=== PATIENT | female | born 1995 | race African-American/Black ===

== ENCOUNTER 2019-05-24 18:24 | Emergency (ER) | payer OTHER, SELFPAY ==
[2019-05-24 18:50] VITALS: BP 133/74; PULSE 75; RESP 16; TEMP 37.6; O2SAT 100
--- NOTE | 2019-05-24 19:30 | ED.GENADULT ---
HPI - General Adult General Chief complaint: Back Pain/Injury Stated complaint: Lower Back Pain Time Seen by Provider: 05/24/19 19:31 Source: patient and RN notes reviewed Mode of arrival: ambulatory Limitations: no limitations History of Present Illness HPI narrative: 23-year-old female presents with complaints of chronic intermittent RT lower back pain that exacerbated over the last 3-4 days. Ibuprofen (last 4 PM today) and IcyHot without relief. Denies new injuries or falls. Denies radiating pain, numbness, or tingling. Denies fever or chills. No upper or lower extremity pain or weakness. Exacerbating factors consist of prolong standing, laying down, and bending over. Denies nausea, vomiting, or abdominal pain. Denies problems with urinating or having a bowel movement, LBM this a.m. per patient and normal. No flank pain or hematuria or dysuria. Julia denies being , LMP 05/10/19-05/15/19. Some parts of this dictation were generated by voice recognition software and may contain typographical and/or grammatical inaccuracies. Related Data Allergies Allergy/AdvReac Type Severity Reaction Status Date / Time No Known Allergies Allergy Unverified 08/02/17 13:05 Review of Systems Review of Systems: Narrative: CONSTITUTIONAL: Denies fever, chills, sweats. EYES: Denies visual changes, redness, discharge. ENT: Denies rhinorrhea, congestion, sore throat, otalgia. CARDIOVASCULAR: Denies chest pain, palpitations, edema. RESPIRATORY: Denies dyspnea, wheezing, cough. GASTROINTESTINAL: Denies abdominal pain, nausea, vomiting, diarrhea. GENITOURINARY: Denies dysuria, hematuria, abnormal discharge. SKIN: Denies rash or itching. MUSCULOSKELETAL: Complains of RT lower back pain. Denies joint pain or myalgia. NEUROLOGIC: Denies numbness or focal weakness. PSYCHIATRIC: Denies anxiety or depression. All systems reviewed & are unremarkable except as noted in HPI and below. [facility] Past Medical History Medical History (Updated 05/25/19 @ 00:00 by Background Daemon) No significant past medical history Surgical History Surgical History (Updated 05/24/19 @ 19:40 by JANET Munoz) No significant past surgical history Family History Family History (Updated 05/24/19 @ 19:40 by JANET Munoz) Other No significant family history Social History Social History (Updated 05/24/19 @ 19:41 by JANET Munoz) Smoking status: Never smoker Second hand tobacco smoke exposure: No Alcohol intake: current Alcohol use details: Occasionally Substance use: never Living arrangements: with family Occupation/Education: occupation Gender identity (if verbalized by the patient): Female Comments At time of signature, agree with nurse past medical, surgical, social, and family history. There is no relevant family history pertinent to the presenting complaint. Exam Narrative: Exam Narrative: GENERAL: This is a well-nourished, well-developed patient, in no apparent distress. Talks in full sentences without deficits and ambulates with steady gait without dyspnea. HEAD: normocephalic, atraumatic. EYES: PERRL. Sclera clear/white. Vision is grossly intact. NECK: Neck supple, non-tender without lymphadenopathy, masses or thyromegaly. CARDIOVASCULAR: Regular rate and rhythm without murmurs, gallops, or rubs. RESPIRATORY: Clear to auscultation. Breath sounds equal bilaterally. No wheezes, rales, or rhonchi. GASTROINTESTINAL: Abdomen soft, non-tender, nondistended. Bowel sounds are active. No hepato-splenomegaly, or palpable masses. No guarding. SKIN: warm, intact with no suspicious lesions or rash, good texture and turgor. NEURO: awake, alert, and oriented to person, place and time. There were no obvious focal neurologic abnormalities. EXTREMITIES: No clubbing, cyanosis, or edema. No joint tenderness, effusion, or edema noted. No calf tenderness. Negative Homans sign bilaterally. BACK: Moderate te
== END 2019-05-24 19:53 | disposition home or self-care (01) ==
PROVIDERS: Emergency Provider Nurse Practitioner Family; PCP Internal Medicine
DX: M54.5 Low back pain (principal)
CPT/HCPCS: 99213; G0463

== ENCOUNTER 2019-06-02 17:30 | Emergency (ER) | payer OTHER, SELFPAY ==
--- NOTE | 2019-06-02 17:41 | PC.NURSE ---
immediately after registration stated needed to use br. given spec. container.
--- NOTE | 2019-06-02 18:05 | ED.FEMALEGU ---
HPI - Female Genitourinary General Chief complaint: Urogenital-Female Stated complaint: Abdominal pain Time Seen by Provider: 06/02/19 18:01 Source: patient and RN notes reviewed Mode of arrival: ambulatory Limitations: no limitations History of Present Illness HPI Narrative: Patient presents today complaining of dysuria, suprapubic pain, urinary frequency since 1530 this afternoon. Denies fever, back pain, hematuria. No recent antibiotic use. She has tried no interventions for symptoms prior to arrival. MD elicited complaint: UTI Related Data Allergies Allergy/AdvReac Type Severity Reaction Status Date / Time No Known Allergies Allergy Unverified 08/02/17 13:05 Review of Systems Review of Systems: Narrative: CONSTITUTIONAL: Denies body aches, fever, chills, or sweats. EYES: Denies visual changes, redness, or discharge. ENT: Denies rhinorrhea, congestion, sore throat, or otalgia. CARDIOVASCULAR: Denies chest pain, palpitations, or edema. RESPIRATORY: Denies cough or dyspnea. GASTROINTESTINAL: Denies abdominal pain, nausea, vomiting, or diarrhea. GENITOURINARY: Denies hematuria.+ Dysuria, frequency, suprapubic pain SKIN: Denies rash, itching, or wounds. MUSCULOSKELETAL: Denies back pain, joint pain, or myalgia. NEUROLOGIC: Denies headache, numbness, tingling, or weakness. PSYCH: Denies depression or anxiety. [facility] Past Medical History Medical History (Updated 06/02/19 @ 18:09 by Carmella Eller, [employer], ) No significant past medical history Surgical History Surgical History (Updated 05/24/19 @ 19:40 by JANET Munoz) No significant past surgical history Family History Family History (Updated 05/24/19 @ 19:40 by JANET Munoz) Other No significant family history Social History Social History (Updated 05/24/19 @ 19:41 by JANET Munoz) Smoking status: Never smoker Second hand tobacco smoke exposure: No Alcohol intake: current Substance use: never Gender identity (if verbalized by the patient): Female Comments At time of signature, I have reviewed and agree with nursing past medical, surgical, social and family history unless otherwise noted. Please see nursing chart for further information. There is no relevant family history pertinent to the presenting complaint Exam Narrative: Exam Narrative: GENERAL: Well-appearing, well-nourished, and in no acute distress. HEAD: Normocephalic, atraumatic. EYES: EOMI. No redness or drainage. Conjunctivae normal. ENT: Mucous membranes pink and moist. NECK: Normal AROM. CHEST: No respiratory distress. Clear to auscultation. HEART: Regular rate and rhythm. No murmur appreciated. Normal peripheral pulses. ABDOMEN: Soft, nondistended, normal active bowel sounds.+ Suprapubic tenderness.-CVAT MUSCULOSKELETAL: No bony tenderness. EXTREMITIES: Normal range of motion. No edema. SKIN: Warm, dry, no rash. NEURO: No focal deficits. Alert and oriented x3. Gait steady. PSYCH: Normal affect. No signs of depression or anxiety. Course Vital Signs Vital signs: Vital Signs Temperature 98.3 F 06/02/19 18:08 Pulse Rate 88 06/02/19 18:08 Respiratory Rate 16 06/02/19 18:08 Blood Pressure 135/84 06/02/19 18:08 Pulse Oximetry 100 06/02/19 18:08 Temperature 98.3 F 06/02/19 18:08 Pulse Rate 88 06/02/19 18:08 Respiratory Rate 16 06/02/19 18:08 Blood Pressure 135/84 06/02/19 18:08 Pulse Oximetry 100 06/02/19 18:08 Reviewed. Pt has been instructed to follow up with her PCP regarding her elevated blood pressure today. MDM - Female Genitourinary Differential Diagnosis Differential diagnosis: Likely urinary tract infection and cystitis Lab Data Attestation: I reviewed the patient's lab results. Labs: Urine Glucose Negative Reference Range: Negative Urine Bilirubin Negative Reference Range: Negative Urine Ketone Negative Re
[2019-06-02 18:08] VITALS: BP 135/84; PULSE 88; RESP 16; TEMP 36.8; O2SAT 100
== END 2019-06-02 18:13 | disposition home or self-care (01) ==
PROVIDERS: Emergency Provider Nurse Practitioner; PCP Internal Medicine
DX: N30.01 Acute cystitis with hematuria (principal)
CPT/HCPCS: 81003; 87077; 87086; 87088; 87186; 99213; G0463

== ENCOUNTER 2019-06-03 11:46 | Emergency (ER) | payer OTHER, SELFPAY ==
[2019-06-03 11:53] VITALS: BP 129/59; PULSE 99; RESP 16; TEMP 37.7; O2SAT 100
--- NOTE | 2019-06-03 12:45 | ED.URI ---
HPI - URI/Sore Throat General Chief Complaint: Upper Respiratory Infection Stated Complaint: Sore Throat Time Seen by Provider: 06/03/19 12:45 Source: patient Mode of arrival: ambulatory Limitations: no limitations History of Present Illness HPI Narrative: Ruddy Quijano is a 23 yo female with no PMH who came to express care again today for complaints of laryngitis and inability to swallow. Was here yesterday for UTI. States she woke up this morning with the sore throat and inability to talk, states that her sinuses feel congested Related Data Allergies Allergy/AdvReac Type Severity Reaction Status Date / Time No Known Allergies Allergy Verified 06/03/19 11:53 Review of Systems Review of Systems: Narrative: CONSTITUTIONAL: Denies fever, chills, sweats. EYES: Denies visual changes, redness, discharge. ENT: Has rhinorrhea, congestion, sore throat, no otalgia. Laryngitis CARDIOVASCULAR: Denies chest pain, palpitations, edema. RESPIRATORY: Denies dyspnea, wheezing, cough GASTROINTESTINAL: Denies abdominal pain, nausea, vomiting, diarrhea. GENITOURINARY: Denies dysuria, hematuria, abnormal discharge SKIN: Denies rash or itching. NEUROLOGIC: Denies numbness, or focal weakness. PSYCHIATRIC: Denies anxiety or depression. [facility] Past Medical History Medical History No significant past medical history Surgical History Surgical History (Updated 05/24/19 @ 19:40 by JANET Munoz) No significant past surgical history Family History Family History Other No significant family history Social History Social History Smoking status: Never smoker Second hand tobacco smoke exposure: No Alcohol intake: current Substance use: never Gender identity (if verbalized by the patient): Female Comments At time of signature, I agree with nursing past medical, surgical, social and family history. There is no relevant family history pertinent to the presenting complaint. Exam Narrative: Exam Narrative: GENERAL: This is a well-nourished, well-developed patient, in mild distress. HEAD: normocephalic, atraumatic. EYES: Sclera clear/white. Vision is grossly intact. EARS: External ears normal, auditory canals clear and without drainage, TMs normal without perforation. Hearing grossly intact. NOSE: External nose normal with nasal discharge, nares without redness, has rhinorrhea. THROAT: Mucous membranes moist, posterior pharynx erythema NECK: Neck supple, non-tender CARDIOVASCULAR: Regular rate and rhythm without murmurs, gallops, or rubs. RESPIRATORY: Clear to auscultation. Breath sounds equal bilaterally. No wheezes, rales, or rhonchi. GASTROINTESTINAL: Abdomen soft, non-tender, SKIN: warm, intact with no suspicious lesions or rash, good texture and turgor. NEURO: awake, alert, and oriented to person, place and time. There were no obvious focal neurologic abnormalities. Steady gait EXTREMITIES: Normal range of motion. No edema. BACK: Nontender without deformity or crepitance. . Course Course Emergency Course: Started on prednisone, Mucinex, benzocaine lozenges Vital Signs Vital signs: Vital Signs Temperature 99.8 F H 06/03/19 11:53 Pulse Rate 99 06/03/19 11:53 Respiratory Rate 16 06/03/19 11:53 Blood Pressure 129/59 L 06/03/19 11:53 Pulse Oximetry 100 06/03/19 11:53 Temperature 99.8 F H 06/03/19 11:53 Pulse Rate 99 06/03/19 11:53 Respiratory Rate 16 06/03/19 11:53 Blood Pressure 129/59 L 06/03/19 11:53 Pulse Oximetry 100 06/03/19 11:53 MDM - URI/Sore Throat Differential Diagnosis Differential diagnosis: Likely upper respiratory infection, viral infection and pharyngitis Lab Data Labs: Strep Screen Presumptive Negative *(Reference Range: Negative)* Discharge Plan Disch
== END 2019-06-03 13:02 | disposition home or self-care (01) ==
PROVIDERS: Emergency Provider Nurse Practitioner; PCP Internal Medicine
DX: J04.2 Acute laryngotracheitis (principal); J02.9 Acute pharyngitis, unspecified
CPT/HCPCS: 87081; 87880; 99213; G0463

== ENCOUNTER 2019-06-05 11:25 | Emergency (ER) | payer OTHER, SELFPAY ==
[2019-06-05 11:49] VITALS: BP 141/87; PULSE 100; TEMP 37.2; O2SAT 100
--- NOTE | 2019-06-05 12:59 | ED.GENADULT ---
HPI - General Adult General Chief complaint: Unspecified Stated complaint: fever/sore throat Time Seen by Provider: 06/05/19 11:53 Source: patient Mode of arrival: ambulatory Limitations: no limitations History of Present Illness HPI narrative: Patient is a 23-year-old female who presents to emergency department for evaluation of upper respiratory symptoms for the last 2 days with hoarseness congestion rhinorrhea sore throat denies vomiting diarrhea is resting comfortably in the room in no distress aware of case findings treatment plan and diagnosis agreeing to follow-up as directed or to return if symptoms worsen or concerns Related Data Allergies Allergy/AdvReac Type Severity Reaction Status Date / Time No Known Allergies Allergy Verified 06/03/19 11:53 Review of Systems Review of Systems: Narrative: CONSTITUTIONAL: Denies fever, chills, or sweats. EYES: Denies redness, or discharge. ENT: Positive for rhinorrhea congestion and sore throat RESPIRATORY: Positive for cough denies dyspnea GASTROINTESTINAL: Denies abdominal pain, nausea, vomiting, or diarrhea. GENITOURINARY: Denies dysuria or hematuria. SKIN: Denies rash or itching. MUSCULOSKELETAL: Denies back pain, joint pain, or myalgia. NEUROLOGIC: Denies headache, dizziness [facility] Past Medical History Medical History No significant past medical history Surgical History Surgical History No significant past surgical history Social History Social History Smoking status: Never smoker Second hand tobacco smoke exposure: No Alcohol intake: current Substance use: never Gender identity (if verbalized by the patient): Female Exam Narrative: Exam Narrative: GENERAL: Well-appearing, well-nourished, and in no acute distress. HEAD: Normocephalic, atraumatic. EYES: PERRLA and EOMI. ENT: Nares clear, no rhinorrhea or epistaxis. Mucous membranes moist. Oropharynx with erythema and without tonsillar hypertrophy exudate or other lesions. Bilateral TMs pearly mccormick nonbulging NECK: Supple. No adenopathy or masses. CHEST: Clear to auscultation. No respiratory distress. No wheezes rales or rhonchi HEART: Regular rate and rhythm. No murmur heard. . EXTREMITIES: Normal range of motion. No edema. SKIN: Warm, dry, no rash. NEURO: No focal deficits. Alert and oriented x3. PSYCH: Normal mood and affect. Course Course Emergency Course: Patient in the room in no distress aware of case findings treatment plan and diagnosis agreeing to follow-up as directed or to return if symptoms worsen or concerns Vital Signs Vital signs: Vital Signs Temperature 99.0 F 06/05/19 11:49 Pulse Rate 100 06/05/19 11:49 Blood Pressure 141/87 H 06/05/19 11:49 Pulse Oximetry 100 06/05/19 11:49 Temperature 99.0 F 06/05/19 11:49 Pulse Rate 100 06/05/19 11:49 Blood Pressure 141/87 H 06/05/19 11:49 Pulse Oximetry 100 06/05/19 11:49 Medical Decision Making MDM Narrative Medical decision making narrative: Negative influenza negative strep in the room afebrile nontoxic-appearing no distress felt appropriate for outpatient reevaluation agreeing to follow-up as directed provided with reasons to return Vital Signs Vital Signs: Vital Signs Temperature 99.0 F 06/05/19 11:49 Pulse Rate 100 06/05/19 11:49 Blood Pressure 141/87 H 06/05/19 11:49 Pulse Oximetry 100 06/05/19 11:49 Temperature 99.0 F 06/05/19 11:49 Pulse Rate 100 06/05/19 11:49 Blood Pressure 141/87 H 06/05/19 11:49 Pulse Oximetry 100 06/05/19 11:49 Lab Data Labs: Influenza A Screen Negative Reference Range: Negative Influenza B Screen Negative Reference Range: Negative Strep Screen Presumptive Negative *(Reference Range: Negative)* Discharg
== END 2019-06-05 13:35 | disposition home or self-care (01) ==
PROVIDERS: Emergency Provider Emergency Medicine; PCP Internal Medicine
DX: J06.9 Acute upper respiratory infection, unspecified (principal)
CPT/HCPCS: 87081; 87804; 87880; 99283

== ENCOUNTER 2019-06-10 18:20 | Emergency (ER) | payer OTHER, SELFPAY ==
[2019-06-10 18:23] VITALS: BP 145/110; PULSE 102; RESP 20; TEMP 38.2; O2SAT 100
[2019-06-10 18:29] VITALS: BP 142/78; PULSE 100; RESP 16; TEMP 38.1; O2SAT 99
--- NOTE | 2019-06-10 18:51 | ED.GENADULT ---
HPI - General Adult General Chief complaint: Unspecified Stated complaint: swollen tonsils Time Seen by Provider: 06/10/19 18:25 Source: patient Mode of arrival: ambulatory Limitations: no limitations History of Present Illness HPI narrative: Patient is a 23-year-old female who presents to emergency department for evaluation of swollen tonsils ear pain for the last 10 days patient notes aching pain worse with swallowing patient has been seen for this and has taken prescribed medications to include antibiotics with no improvement patient denies any fever chills nausea vomiting and on arrival is otherwise resting comfortably in the room in no distress Related Data Allergies Allergy/AdvReac Type Severity Reaction Status Date / Time No Known Allergies Allergy Verified 06/03/19 11:53 Review of Systems Review of Systems: All systems reviewed & are unremarkable except as noted in HPI and below PMFSH Social History Social History Smoking status: Never smoker Second hand tobacco smoke exposure: No Alcohol intake: current Substance use: never Gender identity (if verbalized by the patient): Female Exam Narrative: Exam Narrative: GENERAL: Well-appearing, well-nourished, and in no acute distress. HEAD: Normocephalic, atraumatic. EYES: PERRLA and EOMI. ENT: Nares clear, no rhinorrhea or epistaxis. Mucous membranes moist. Oropharynx without tonsillar hypertrophy exudate or other lesions. Bilateral TMs nonerythematous slightly bulging NECK: Supple. Anterior adenopathy noted CHEST: Clear to auscultation. No respiratory distress. No wheezes rales or rhonchi HEART: Regular rate and rhythm. No murmur heard. Normal peripheral pulses. EXTREMITIES: Normal range of motion. No edema. SKIN: Warm, dry, no rash. NEURO: No focal deficits. Alert and oriented x3. Cranial nerves II through XII grossly intact PSYCH: Normal mood and affect. Course Course Emergency Course: Patient in the room in no distress aware of case findings treatment plan and diagnosis provided with ENT follow-up Vital Signs Vital signs: Vital Signs Temperature 100.7 F H 06/10/19 18:23 Pulse Rate 102 H 06/10/19 18:23 Respiratory Rate 20 06/10/19 18:23 Blood Pressure 145/110 H 06/10/19 18:23 Pulse Oximetry 100 06/10/19 18:23 Temperature 100.6 F H 06/10/19 18:29 Pulse Rate 100 06/10/19 18:29 Respiratory Rate 16 06/10/19 18:29 Blood Pressure 142/78 H 06/10/19 18:29 Pulse Oximetry 99 06/10/19 18:29 Medical Decision Making MDM Narrative Medical decision making narrative: Patient in the room in no distress aware of case findings treatment plan and diagnosis agreeing to follow-up as directed or to return if symptoms worsen or concerns Vital Signs Vital Signs: Vital Signs Temperature 100.7 F H 06/10/19 18:23 Pulse Rate 102 H 06/10/19 18:23 Respiratory Rate 20 06/10/19 18:23 Blood Pressure 145/110 H 06/10/19 18:23 Pulse Oximetry 100 06/10/19 18:23 Temperature 100.6 F H 06/10/19 18:29 Pulse Rate 100 06/10/19 18:29 Respiratory Rate 16 06/10/19 18:29 Blood Pressure 142/78 H 06/10/19 18:29 Pulse Oximetry 99 06/10/19 18:29 Discharge Plan Discharge Clinical Impression: Pharyngitis Patient Disposition: Home, Self-Care Condition: Stable Instructions: Antibiotic Form, Pharyngitis (ED) Additional Instructions: Follow-up with ear nose and throat in the next 5 to 7 days. Go to ER for shortness of breath, difficulty breathing, chest pain, fever/chills, weakness, nauseau/vomitting, unable to swallow or open the mouth etc. or any other concerns. Stay well-hydrated Take any prescribed medications as directed. Follow patient education sheets If you do not have a drug allergy to tylenol or motrin and can tolerate it then take tylenol or motrin as needed for discomfort/pain. Prescriptions: New montelukast [Singulair] 10 mg tablet
[2019-06-10] MEDS: ACETAMINOPHEN 500 MG TABLET 1000 MG PO (19:10)
[2019-06-10 19:13] VITALS: BP 138/70; PULSE 98; RESP 16; TEMP 38; O2SAT 99
== END 2019-06-10 19:14 | disposition home or self-care (01) ==
PROVIDERS: Emergency Provider Emergency Medicine; PCP Internal Medicine
DX: J02.9 Acute pharyngitis, unspecified (principal)
CPT/HCPCS: 96372; 99283; A9270; J1100

== ENCOUNTER 2019-09-20 08:27 | Emergency (ER) | payer OTHER, SELFPAY ==
[2019-09-20 08:49] VITALS: BP 131/69; PULSE 79; RESP 18; TEMP 36.8; O2SAT 100
--- NOTE | 2019-09-20 09:02 | ED.ABDPAIN ---
HPI - Abdominal Pain General Chief Complaint: Abdominal Pain Stated Complaint: crapping in stomach Time Seen by Provider: 09/20/19 09:03 Source: patient and RN notes reviewed Mode of arrival: ambulatory Limitations: no limitations History of Present Illness HPI narrative: This is a 24 years old female presents to the office for an evaluation of abdominal cramping intermittently for 2 months after . Pain is getting worse for the last 1 to 2 weeks and become more constant. She reports spotting initially after ; but not currently. Rates pain 8/10. Associated with nauseous, decreased appetite, bloating/constipation feeling, and painful sex. She also reported urinary retention with vaginal discharge however she denies foul odor. She had a 1-year-old child. She had a telephone follow-up with clinic afterward however everything was fine then. She was told to follow-up with her doctor who cancel her appointment due to COVID. She did not tried anything for pain. Related Data Home Medications Medication Instructions Recorded Confirmed acetaminophen-codeine 1 tablet PO Q4H 09/20/19 09/20/19 [Tylenol-Codeine #3] acyclovir 800 mg PO DAILY 09/20/19 09/20/19 ibuprofen 600 mg PO TID 09/20/19 09/20/19 Allergies Allergy/AdvReac Type Severity Reaction Status Date / Time [place] AdvReac Anxiety Uncoded 09/20/19 09:14 Review of Systems Review of Systems: Narrative: CONSTITUTIONAL: Denies fever or feeling ill ENT: Denies congestion CARDIOVASCULAR: Denies chest pain RESPIRATORY: Denies dyspnea,cough GASTROINTESTINAL: Denies vomiting, diarrhea. Reports abdominal cramping, nausea with decrease appetite GENITOURINARY: Reports urinary urgency/retention, vaginal discharge (normal per patient). Denies urinary frequeny,hematuria. SKIN: Denies rash/lesions MUSCULOSKELETAL: Denies acute back pain NEUROLOGIC: Denies lightheaded PMFSH Social History Social History Smoking status: Never smoker Second hand tobacco smoke exposure: No Alcohol intake: current Substance use: never Gender identity (if verbalized by the patient): Female Exam Narrative: Exam Narrative: GENERAL: This is a well-nourished, well-developed patient, in no apparent distress. CARDIOVASCULAR: Regular rate and rhythm without murmurs, gallops, or rubs. RESPIRATORY: Clear to auscultation. Breath sounds equal bilaterally. No wheezes, rales, or rhonchi. GASTROINTESTINAL: Abdomen tender with palpation throughout; nondistended. Bowel sounds are active. No hepato-splenomegaly, or palpable masses. Patient is guarding. SKIN: warm, intact with no suspicious lesions or rash, good texture and turgor. NEURO: awake, alert, and oriented to person, place and time. There were no obvious focal neurologic abnormalities. Steady gait Cesar Coma Scale Eye Opening: Spontaneous 4 Cesar Coma Scale Motor: Obeys Commands 6 [place] Coma Scale Verbal: Oriented 5 Course Vital Signs Vital signs: Vital Signs Temperature 98.2 F 09/20/19 08:49 Pulse Rate 79 09/20/19 08:49 Respiratory Rate 18 09/20/19 08:49 Blood Pressure 131/69 09/20/19 08:49 Pulse Oximetry 100 09/20/19 08:49 Temperature 98.2 F 09/20/19 08:49 Pulse Rate 79 09/20/19 08:49 Respiratory Rate 18 09/20/19 08:49 Blood Pressure 131/69 09/20/19 08:49 Pulse Oximetry 100 09/20/19 08:49 Transfer Transfered to: [facility] Transfer rationale: Diagnostic test Accepting physician: Dr. Quiroz Transfer comments: higher level care MDM - Abdominal Pain MDM Narrative Medical decision making narrative: I recommend ER due to the severity of her pain and recent procedures, patient agree to go to [facility] with her boyfriend driving her there. Differential Diagnosis Differential diagnosis: Likely abdominal pain, constipation, diverticulitis, endometriosis and other (UTI, BV, residual tissue from ) Critical Car
== END 2019-09-20 09:18 | disposition short-term general hospital (02) ==
PROVIDERS: Emergency Provider Nurse Practitioner; PCP Internal Medicine
DX: R10.9 Unspecified abdominal pain (principal)
CPT/HCPCS: 99212; G0463

== ENCOUNTER 2019-09-20 09:48 | Emergency (ER) | payer OTHER, SELFPAY ==
[2019-09-20] VITALS (8 sets, daily range): BP systolic 146–150; BP diastolic 74–88; PULSE 94; RESP 18; TEMP 36.9; O2SAT 95–100
--- NOTE | ~2019-09-20 | CT_ITS ---
EXAMINATION: CT abdomen pelvis w con DATE: 09/20/2019 11:46 INDICATION: Abdominal pain TECHNIQUE: Computed tomography (CT) of the abdomen and pelvis was performed with 100 mL Omnipaque-350 intravenous contrast. Automated exposure control and iterative reconstruction technique were employe d. The dose-length product was 553.01 mGy-cm. COMPARISON: None FINDINGS: Lung bases are clear. Heart size is normal. No pericardial or pleural effusion. 3.7 x 3.3 x 3.8 cm le casey in segment IVb of the liver abutting the ligamentum teres which demonstrates subtly decreased at tenuation/enhancement relative to the surrounding liver. There appears to be a recanalized umbilical vein. Gallbladder, spleen, pancreas, bilateral adrenal glands and kidneys are normal. No bowel obstru ction or abnormal bowel wall thickening. The appendix appears normal. There is mild stranding along t he caudal aspect of the greater omentum which contacts the appendix. There is however no appreciable stranding along the posterior margin of the appendix to more specifically suggest acute appendicitis. 2.8 x 1.7 cm right adnexal cyst. Bladder, anteverted uterus and left ovary are normal. There is a sm all amount of free fluid in the pelvis along with additional stranding along the bilateral necks. No abscess or free intraperitoneal gas. No pathologically enlarged abdominal or pelvic lymphadenopathy. Mild bilateral hip osteoarthritis. IMPRESSION: 1. Nonspecific stranding and small amount of free fluid in the pelvis. Differential would include cys titis, pelvic inflammatory disease or other nonspecific inflammation. Acute appendicitis considered l ess likely given the normal appearance of the appendix and lack of stranding along the retroperitonea l sided periappendiceal fat. 2. Indeterminate 3.7 x 3.3 x 3.8 cm lesion in segment IVb of the liver. Differential would include fo faizan fat, focal nodular hyperplasia or hepatic adenoma. Malignancy would be unlikely in the absence of other liver disease or known primary. Recommend follow-up pre and postcontrast MRI for further evalu ation. Reviewed, dictated and finalized at location A. IMPRESSION: 1. Nonspecific stranding and small amount of free fluid in the pelvis. Differen tial would include cystitis, pelvic inflammatory disease or other nonspecific i nflammation. Acute appendicitis considered less likely given the normal appeara nce of the appendix and lack of stranding along the retroperitoneal sided peria ppendiceal fat. 2. Indeterminate 3.7 x 3.3 x 3.8 cm lesion in segment IVb of the liver. Differe ntial would include focal fat, focal nodular hyperplasia or hepatic adenoma. Ma lignancy would be unlikely in the absence of other liver disease or known prima ry. Recommend follow-up pre and postcontrast MRI for further evaluation.
[2019-09-20 10:20] LABS: Basophils Percent Auto 0.3 % (0.2-1.2); Eosinophils Absolute Auto 0.1 K/mm3 (0-0.3); Eosinophils Percent Auto 0.7 % (0-4.4); Hematocrit 36.5 % (37.0-47.0); Hemoglobin 12.2 g/dL (12.0-15.0); Immature Granulocyte Absolute 0.03 K/mm3 (0.00-0.031); Immature Granulocyte Percent A 0.4 % (0-0.5); Lymphocytes Percent Auto 14.1 % (18.3-44.2); Mean Corpuscular HGB Conc 33.4 g/dl (32-36); Mean Corpuscular Hemoglobin 28.9 pg (26-34); Mean Corpuscular Volume 86.5 fl (80-100); Mean Platelet Volume 11.2 fl (7.4-10.4); Monocytes Absolute Auto 0.7 K/mm3 (0.1-0.6); Monocytes Percent Auto 9.6 % (2.6-8.5); Neutrophils Absolute Auto 5.3 K/mm3 (1.3-6.7); Neutrophils Percent Auto 74.9 % (45.5-73.1); Platelet Count Result 254 k/mm3 (150-375); Red Blood Count 4.22 M/mm3 (4.2-5.4); Red Cell Distribution Width 13.2 % (11.5-14.5); White Blood Count 7.1 K/mm3 (4.5-10.0)
[2019-09-20 10:28] LABS: Alanine Aminotransferase 7 U/L (4-35); Albumin Level 3.9 g/dL (3.5-5.1); Alkaline Phosphatase 59 U/L (38-126); Aspartate Amino Transferase 17 U/L (14-36); Bilirubin,Total 0.4 mg/dL (0.2-1.3); Blood Urea Nitrogen 7 mg/dL (7-17); Calcium 8.8 mg/dL (8.4-10.2); Carbon Dioxide 28 mmol/L (22-30); Chloride 106 mmol/L (98-107); Estimated CRCL calculation 130 ml/min; Estimated Glomerular Filt Rate > 60; Glucose 88 mg/dL (65-105); Lipase 27 U/L (23-300); Potassium 3.6 mmol/L (3.4-5.0); Sodium 137 mmol/L (137-145)
[2019-09-20 10:39] LABS: Add Urine Microscopic? YES; Appearance Urine Clear (Clear); Bacteria Urine Trace /hpf; Bilirubin Urine Negative (Negative); Color Urine Yellow (Yellow); Glucose Urine UA Negative (Negative); Ketones Urine Negative (Negative); Leukocyte Esterase Ur 2+ LEU/UL (Negative); Mucus Urine Rare /lpf; Nitrate Urine Negative (Negative); Protein Urine Negative (Negative); Specific Grav Ur 1.024 (1.001-1.035); Squamous Epithelial Cell Urine Many /hpf (Few)
[2019-09-20 10:41] LABS: Blood Urine Negative (Negative)
--- NOTE | 2019-09-20 11:06 | ED.GENADULT ---
HPI - General Adult General Chief complaint: [employer] Stated complaint: abd pain post op Time Seen by Provider: 09/20/19 10:58 History of Present Illness HPI narrative: Patient presents from the urgent care for abdominal pain. She has had abdominal pain for 2 weeks she points to her mid and upper abdomen. She says it comes and goes but is worse with a bowel movement. She gauges the pain at 5 out of 10. She has had no nausea or vomiting. She denies fever chills and sweats. She has a small amount of vaginal discharge without odor. She would like to be checked for sexually transmitted diseases. She had an 2 months ago, and healed up normally with 1 light.. She is G2, P1 Ab1. She smokes cigarettes, drinks alcohol, and does marijuana. 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 Onset (ago): week(s) Location: abdomen Radiation: non-radiation Severity: moderate Severity scale (1-10): 5 Related Data Home Medications Medication Instructions Recorded Confirmed acetaminophen-codeine 1 tablet PO Q4H 09/20/19 09/20/19 [Tylenol-Codeine #3] acyclovir 800 mg PO DAILY 09/20/19 09/20/19 ibuprofen 600 mg PO TID 09/20/19 09/20/19 Allergies Allergy/AdvReac Type Severity Reaction Status Date / Time mountain dew AdvReac Anxiety Uncoded 09/20/19 09:14 Review of Systems Review of Systems: Narrative: CONSTITUTIONAL: Denies fever, chills, or sweats. EYES: Denies visual changes, redness, or discharge. ENT: Denies rhinorrhea, congestion, sore throat, or otalgia. CARDIOVASCULAR: Denies chest pain, palpitations, or edema. RESPIRATORY: Denies cough or dyspnea. GASTROINTESTINAL: Denies nausea, vomiting, or diarrhea. GENITOURINARY: Denies dysuria or hematuria. SKIN: Denies rash or itching. MUSCULOSKELETAL: Denies back pain, joint pain, or myalgia. NEUROLOGIC: Denies headache, numbness, or weakness. PSYCHIATRIC: Denies anxiety or depression. shaved pubis, scant yellow vaginal discharge, slight cervical motion tenderness, no masses. [facility] Surgical History Surgical History No significant past surgical history Social History Social History (Updated 09/20/19 @ 11:09 by Daisy Quiroz MD) Smoking status: Current every day smoker Alcohol intake: current Substance use: current Substance use type: marijuana Gender identity (if verbalized by the patient): Female Exam Narrative: Exam Narrative: GENERAL: Well-appearing, well-nourished, and in no acute distress. [place] headrest, and long fake lashes. HEAD: Normocephalic, atraumatic. EYES: PERRLA and EOMI. ENT: Nares clear, no rhinorrhea or epistaxis. Mucous membranes moist. NECK: Supple. CHEST: Clear to auscultation. No respiratory distress. HEART: Regular rate and rhythm. No murmur heard. Normal peripheral pulses. ABDOMEN: Soft, nontender, nondistended, normal active bowel sounds. EXTREMITIES: Normal range of motion. No edema. SKIN: Warm, dry, no rash. NEURO: No focal deficits. Alert and oriented x3. PSYCH: Normal mood and affect. Course Reevaluation(s) Reevaluation #1: To trichomonas swab was not correct. Results were not available. The patient chooses to take the treatment rather than to be retested. Date: 09/20/19 Time: 13:49 Vital Signs Vital signs: Vital Signs Temperature 98.5 F 09/20/19 10:09 Pulse Rate 94 09/20/19 10:09 Respiratory Rate 18 09/20/19 10:09 Blood Pressure 149/88 H 09/20/19 10:09 Pulse Oximetry 95 09/20/19 10:09 Temperature 98.5 F 09/20/19 10:09 Pulse Rate 94 09/20/19 10:09 Respiratory Rate 18 09/20/19 10:09 Blood Pressure 146/74 H 09/20/19 10:32 Pulse Oximetry 100 09/20/19 11:15 Medical Decision Making MDM Narrative Medical decision making narrative: I did the pelvic exam which showed some cervical motion tenderness, she was tested for GC chlamydia and trichomonas, she was treated for PID. She was encouraged to use condoms in the future, and to have her p
[2019-09-20] MEDS: AZITHROMYCIN 250 MG TABLET 1000 MG PO (11:44)
[2019-09-20] MEDS: cefTRIAXone 250 MG VIAL IM (11:47)
[2019-09-20] MEDS: metroNIDAZOLE 250 MG TABLET 2000 MG PO (13:52)
== END 2019-09-20 14:09 | disposition home or self-care (01) ==
PROVIDERS: Emergency Provider Emergency Medicine; PCP Internal Medicine
DX: N73.9 Female pelvic inflammatory disease, unspecified (principal); F17.210 Nicotine dependence, cigarettes, uncomplicated
CPT/HCPCS: 36415; 74177; 80053; 81001; 81025; 83690; 85025; 87077; 87086; 87088; 87491; 87591; 96372; 99284; A9270; J0696; Q9967

== ENCOUNTER 2019-11-05 10:51 | Outpatient (CLI) | payer OTHER, SELFPAY ==
--- NOTE | ~2019-11-05 | MR_ITS ---
EXAMINATION: MR abdomen wo/w con INDICATION: Indeterminate liver lesions on CT TECHNIQUE: Coronal SSFSE ARC, WATER:coronal LAVA-FLEX, Coronal 2D FIESTA FatSat, Axial SSFSE BH ARC, Axial 3D DualEcho BH, Axial SSFSE-IR, Axial DWI b=500, Axial 2D FIESTA FatSat, pre and dynamic postco ntrast Axial LAVA ARC, postcontrast Coronal In and Opposed phase LAVA FLEX COMPARISON: 09/20/2019 CONTRAST: Multihance, 18 cc FINDINGS: There is a geographic area of low signal intensity abutting the ligamentum teres in segment IVb of the liver best appreciated on postcontrast images. No focal mass or associated restricted dif fusion is identified. The liver is otherwise unremarkable. The spleen, pancreas, gallbladder, and adr enal glands are normal. The left kidney is unremarkable. There is a 5 mm cyst of the right kidney. Th ere are no pathologically enlarged abdominal lymph nodes. A 1.4 cm hemorrhagic cyst is noted in the l eft ovary. There are no dilated loops of bowel. IMPRESSION: 1. Geographic area of low signal intensity in liver segment IVb on postcontrast images most consisten t with focal fatty infiltration. No suspicious liver mass identified. Reviewed, dictated and finalized at location B. IMPRESSION: 1. Geographic area of low signal intensity in liver segment IVb on postcontrast images most consistent with focal fatty infiltration. No suspicious liver mass identified.
[2019-11-05 11:47] LABS: Estimated Glomerular Filt Rate > 60
== END 2019-11-05 10:52 | disposition home or self-care (01) ==
PROVIDERS: PCP Internal Medicine; Visit Provider Internal Medicine
DX: K76.9 Liver disease, unspecified (principal)
CPT/HCPCS: 36415; 74183; A9577

== ENCOUNTER 2020-05-03 14:46 | Emergency (ER) | payer OTHER, SELFPAY ==
[2020-05-03 15:08] VITALS: BP 134/77; PULSE 78; RESP 18; TEMP 36.8; O2SAT 100
--- NOTE | 2020-05-03 15:35 | ED.LOWEXIN ---
HPI - Extremity Injury (Lower) General Chief Complaint: Extremity Injury, Lower Stated Complaint: left leg pain Time Seen by Provider: 05/03/20 15:25 Source: patient Mode of arrival: ambulatory Limitations: no limitations History of Present Illness HPI Narrative: Julia Quijano is a 24 yo female who is 11 weeks who comes with L sided sciatica. She had sciatica on the left side during her last that started till she is about 20 weeks . Pain is a 9 out of 10. she states that she has a lot of difficulty standing at her job with the amount of pain she had and was hoping that she could get it under control, wants to continue to be able to work throughout . States she is got some depression but she thinks it is the hormones related to the and is in fact happy about having another baby Related Data Home Medications Medication Instructions Recorded Confirmed omeprazole 05/03/20 Allergies Allergy/AdvReac Type Severity Reaction Status Date / Time mountain dew AdvReac Anxiety Uncoded 09/20/19 09:14 Review of Systems Review of Systems: Narrative: CONSTITUTIONAL: Denies fever, chills, sweats. EYES: Denies visual changes, redness, discharge. ENT: Denies rhinorrhea, congestion, sore throat, otalgia. CARDIOVASCULAR: Denies chest pain, palpitations, edema. RESPIRATORY: Denies dyspnea, wheezing, cough GASTROINTESTINAL: Denies abdominal pain, nausea, vomiting, diarrhea. GENITOURINARY: Denies dysuria, hematuria, abnormal discharge SKIN: Denies rash or itching. NEUROLOGIC: Denies numbness, or focal weakness. PSYCHIATRIC: Denies anxiety or depression. Left-sided pain radiates from left buttock down the back of the leg and sometimes into foot, unable to sleep last night PMFSH Past Medical History Medical History No significant past medical history Surgical History Surgical History No significant past surgical history Family History Family History Other No significant family history Social History Social History Smoking status: Current every day smoker Alcohol intake: current Substance use: current Substance use type: marijuana Gender identity (if verbalized by the patient): Female Comments At time of signature, I agree with nursing past medical, surgical, social and family history. There is no relevant family history pertinent to the presenting complaint. Patient has appointment with [facility] next week; elevated blood pressure may be related to level of pain she is currently having Exam Narrative: Exam Narrative: GENERAL: This is a well-nourished, well-developed patient, in moderate distress. HEAD: normocephalic, atraumatic. EYES: Sclera clear/white. Vision is grossly intact. EARS: External ears normal. Hearing grossly intact. NOSE: External nose normal without nasal discharge, nares without redness, no rhinorrhea. THROAT: Mucous membranes moist, NECK: Neck supple, CARDIOVASCULAR: Regular rate and rhythm without murmurs, gallops, or rubs. RESPIRATORY: Clear to auscultation. Breath sounds equal bilaterally. No wheezes, rales, or rhonchi. GASTROINTESTINAL: Abdomen soft, SKIN: warm, intact with no suspicious lesions or rash, good texture and turgor. NEURO: awake, alert, and oriented to person, place and time. There were no obvious focal neurologic abnormalities. Steady gait EXTREMITIES: Normal range of motion on R. L leg limited flexion at 90 degrees - pain when flexes beyond. Pain with adduction BACK: Nontender without deformity Course Course Emergency Course: [facility] left side Unable to give muscle accident due to being a little weeks so gave 5 [place] to be taken at night if cannot sleep with the pain is u
[2020-05-03 16:20] VITALS: BP 142/89; PULSE 91; RESP 16; TEMP 36.8; O2SAT 99
== END 2020-05-03 16:00 | disposition home or self-care (01) ==
PROVIDERS: Emergency Provider Nurse Practitioner; PCP Internal Medicine
DX: O99.891 Other specified diseases and conditions complicating pregnancy (principal); Z3A.20 20 weeks gestation of pregnancy; M54.32 Sciatica, left side; O99.332 Smoking (tobacco) complicating pregnancy, second trimester; F17.200 Nicotine dependence, unspecified, uncomplicated
CPT/HCPCS: 99213; G0463

== ENCOUNTER 2021-04-18 08:32 | Emergency (ER) | payer OTHER, SELFPAY ==
--- NOTE | 2021-04-18 08:35 | ED.URI ---
HPI - URI/Sore Throat General Chief Complaint: Upper Respiratory Infection Stated Complaint: sore throat Time Seen by Provider: 04/18/21 08:38 Source: patient and RN notes reviewed Mode of arrival: ambulatory Limitations: no limitations History of Present Illness HPI Narrative: 25-year-old female presents to the [facility] with complaints of a sore throat and left ear pain since yesterday. Had tried some throat spray and other [id number] products. Denies fevers, nausea, vomiting or diarrhea. Denies chest pain or abdominal pain. Patient reports difficulty swallowing Patient reports that she was tested Wednesday, 2 days ago at [facility], reports that it was negative MD elicited complaint: sore throat Related Data Allergies Allergy/AdvReac Type Severity Reaction Status Date / Time mountain dew AdvReac Anxiety Uncoded 04/18/21 08:53 Review of Systems Review of Systems: All systems reviewed & are unremarkable except as noted in HPI and below Constitutional: Constitutional: Reports no additional constitutional complaints and Reports headache(s) Eyes: Eyes: Reports no additional eye complaints ENT: Reports as per HPI, Reports change in voice, Denies vertigo, Denies dizziness, Denies ear discharge, Reports headache(s), Denies nasal congestion and Reports sore throat Comments: Left ear pain Cardiovascular: Cardiovascular: Reports no additional cardiovascular complaints, Denies chest pain and Denies dyspnea Respiratory: Respiratory: Reports no additional respiratory complaints, Denies cough, Denies dyspnea and Denies wheezing Gastrointestinal: Gastrointestinal: Reports no additional gastrointestinal complaints, Denies abdominal pain, Denies diarrhea, Denies nausea and Denies vomiting Musculoskeletal: Musculoskeletal: Reports no additional musculoskeletal complaints Integumentary/Breasts: Skin/Breast: Reports system reviewed and no additional complaints, except as docu Neurologic: Reports system reviewed and no additional complaints, except as documented Psychiatric: Psychiatric: Reports no additional psychiatric complaints Allergic/Immunologic: Allergic/Immunologic: Reports no additional allergic/immunologic complaints [facility] Past Medical History Medical History (Updated 04/18/21 @ 08:57 by Swati Burger) No significant past medical history Surgical History Surgical History No significant past surgical history Family History Family History Other No significant family history Social History Social History Smoking status: Current every day smoker Alcohol intake: current Alcohol use details: Occasionally Substance use: current Substance use type: marijuana Gender identity (if verbalized by the patient): Female Comments At the time of my signature, I reviewed and agree with the nursing past medical, surgical, social, and family history. There is no relevant family history pertinent to the patient complaint. Exam Const: General: healthy appearing, no acute distress and alert Nutritional Appearance: well nourished Orientation/consciousness: patient oriented x3 Limitations: no limitations HENMT: Head: normal to inspection Ears: external ears normal, TM's normal bilaterally, EAC's normal and no periauricular adenopathy General nose exam: Normal external nose present and Normal nasal mucous membranes and turbinates present Mouth: Yes Normal oral and palatal mucosa present Throat: uvula midline, abnormal tonsil bilateral erythema and hypertrophy 2+; no exudates and no uvular edema Eyes: Conjunctivae: conjunctivae normal Pupils: Equal, round and reactive pupils present Neck: Neck: normal visual inspection, no meningeal signs and lymphadenopathy submandibular soft, mobile and tender Chest: Chest palpation & inspection: normal inspection of the
[2021-04-18 08:43] VITALS: BP 130/74; PULSE 103; RESP 16; TEMP 37.6; O2SAT 100
== END 2021-04-18 09:05 | disposition home or self-care (01) ==
PROVIDERS: Emergency Provider Nurse Practitioner
DX: J02.0 Streptococcal pharyngitis (principal); F17.200 Nicotine dependence, unspecified, uncomplicated
CPT/HCPCS: 87880; 99213; G0463

== ENCOUNTER 2022-04-11 11:12 | Emergency (ER) | payer OTHER, SELFPAY ==
[2022-04-11 12:38] VITALS: BP 133/73; PULSE 66; RESP 20; TEMP 37.3; O2SAT 100
--- NOTE | 2022-04-11 13:35 | ED.GENADULT ---
HPI - General Adult General Chief complaint: Upper Respiratory Infection Stated complaint: sore throat Time Seen by Provider: 04/11/22 13:35 Source: patient Mode of arrival: ambulatory Limitations: no limitations History of Present Illness HPI narrative: 26-year-old female patient presents to the [facility] with complaints of sore throat for the past 4 5 days. Patient states she is having pain with swallowing, states that her left ear has been hurting denies any fevers she is aware of but has had some chills. Patient states she is prone to strep throat initially tested at least once a year. Patient states she has been taking ibuprofen for her pain. Related Data Allergies Allergy/AdvReac Type Severity Reaction Status Date / Time No Known Allergies Allergy Verified 04/11/22 12:49 Review of Systems Review of Systems: CONSTITUTIONAL: Denies fever, chills, or sweats. EYES: Denies visual changes, redness, or discharge. ENT: Denies rhinorrhea, congestion, positive sore throat, positive left otalgia. CARDIOVASCULAR: Denies chest pain, palpitations, or edema. RESPIRATORY: Denies cough or dyspnea. GASTROINTESTINAL: Denies abdominal pain, nausea, vomiting, or diarrhea. GENITOURINARY: Denies dysuria or hematuria. SKIN: Denies rash or itching. MUSCULOSKELETAL: Denies back pain, joint pain, or myalgia. NEUROLOGIC: Denies headache, numbness, or weakness. PSYCHIATRIC: Denies anxiety or depression. [facility] Past Medical History Medical History (Updated 04/11/22 @ 13:40 by JANET Gillis) No significant past medical history Surgical History Surgical History No significant past surgical history Family History Family History Other No significant family history Social History Social History Smoking status: Current every day smoker Alcohol intake: current Alcohol use details: Occasionally Substance use: current Substance use type: marijuana Gender identity (if verbalized by the patient): Female Comments At the time of my signature I agree with nursing past medical history, surgical, social, and family history. There is no relevant family history pertinent to the presenting complaint. Exam Narrative: GENERAL: Well-appearing, well-nourished, and in no acute distress. HEAD: Normocephalic, atraumatic. EYES: PERRLA and EOMI. ENT: Nares clear, no rhinorrhea or epistaxis. Mucous membranes moist. Patient has erythema noted to posterior pharynx with 2+ tonsil enlargement to the left side. Bilateral TMs are clear with no erythema or foreign bodies the canal. NECK: Supple. Left-sided lymphadenopathy CHEST: Clear to auscultation. No respiratory distress. HEART: Regular rate and rhythm. No murmur heard. Normal peripheral pulses. ABDOMEN: Soft, nontender, nondistended, normal active bowel sounds. EXTREMITIES: Normal range of motion. No edema. SKIN: Warm, dry, no rash. NEURO: No focal deficits. Alert and oriented x3. Course Course Level of Care: Express Care Visit Vital Signs Vital signs: Vital Signs Temperature 37.3 C 04/11/22 12:38 Pulse Rate 66 04/11/22 12:38 Respiratory Rate 20 04/11/22 12:38 Blood Pressure 133/73 04/11/22 12:38 Pulse Oximetry 100 04/11/22 12:38 Oxygen Delivery Room Air 04/11/22 12:38 Temperature 37.3 C 04/11/22 12:38 Pulse Rate 66 04/11/22 12:38 Respiratory Rate 20 04/11/22 12:38 Blood Pressure 133/73 04/11/22 12:38 Pulse Oximetry 100 04/11/22 12:38 Oxygen Delivery Room Air 04/11/22 12:38 Vital signs reviewed. Medical Decision Making MDM Narrative Medical decision making narrative: Discussed with patient that her strep throat swab today is positive. We will discharge her home with antibiotics for the strep throat infection. She can continue taking Tylenol and ibuprofen as needed for
== END 2022-04-11 13:48 | disposition home or self-care (01) ==
PROVIDERS: Emergency Provider Nurse Practitioner Family
DX: J02.0 Streptococcal pharyngitis (principal); F17.290 Nicotine dependence, other tobacco product, uncomplicated; F12.90 Cannabis use, unspecified, uncomplicated
CPT/HCPCS: 87880; 99213; G0463

== ENCOUNTER 2022-08-09 11:34 | Emergency (ER) | payer OTHER, SELFPAY ==
[2022-08-09 11:38] VITALS: BP 129/79; PULSE 70; RESP 18; TEMP 36.6; O2SAT 100
[2022-08-09 12:25] VITALS: BP 155/81; PULSE 60; RESP 16; O2SAT 100
--- NOTE | 2022-08-09 12:40 | ED.GENADULT ---
HPI - General Adult General Chief complaint: Vaginal Bleeding Stated complaint: nexplanon concerns Time Seen by Provider: 08/09/22 12:02 Source: patient and RN notes reviewed Mode of arrival: ambulatory Limitations: no limitations History of Present Illness HPI narrative: This is a 26 year old female who presents for evaluation of left arm pain for 1 month. She states that she had nexplanon placed in February. She has been having irregular menses since implantation. She also reports her cycles are heavy and she uses a box a tampons. She was bleeding yesterday but she denies any bleeding today. She also reports frequent headaches but she denies having headache today. She is here today because she wants her nexplanon removed. She reports left upper arm pain for 1 month. She reports shooting pain that is worse with bending her left arm. She reports here hand feels cold. She denies chest pain, sob, lightheadness. Related Data Allergies Allergy/AdvReac Type Severity Reaction Status Date / Time No Known Allergies Allergy Verified 08/09/22 12:19 Review of Systems Constitutional: Constitutional: Denies weakness Cardiovascular: Cardiovascular: Denies syncope, Denies rapid heart rate, Denies irregular heart rhythm, Denies leg edema and Denies dyspnea Respiratory: Respiratory: Denies chest congestion, Denies hemoptysis, Denies excessive phlegm production and Denies dyspnea Gastrointestinal: Gastrointestinal: Denies abdominal pain, Denies hematochezia, Denies diarrhea and Denies vomiting Genitourinary: Genitourinary: Reports abnormal vaginal bleeding, Denies hematuria and Denies dysuria Musculoskeletal: Musculoskeletal: Denies joint swelling, Denies loss of height, Reports muscle cramps and Denies muscle weakness Neurologic: Denies syncope, Reports headache(s), Denies focal weakness and Denies weakness PMFSH Past Medical History Medical History No significant past medical history Surgical History Surgical History No significant past surgical history Family History Family History Other No significant family history Social History Social History Smoking status: Current every day smoker Alcohol intake: current Alcohol use details: Occasionally Substance use: current Substance use type: marijuana Living arrangements: with family Occupation/Education: occupation Gender identity (if verbalized by the patient): Female Exam Const: General: no acute distress and alert Nutritional Appearance: well nourished Orientation/consciousness: patient oriented x3 Limitations: no limitations HENMT: Head: normal to inspection Mouth: Yes Normal oral and palatal mucosa present Eyes: EOM: EOMs intact bilaterally Resp: Effort & Inspection: normal respiratory effort Auscultation: clear to auscultation bilaterally Cardio: Rate: regular rate Rhythm: regular rhythm Heart sounds: no murmurs Other: bilateral palpable radial pulses GI: GI Palp: Yes Soft to palpation, No Tenderness to palpation present (GI), No Guarding due to palpation present (GI) and No Rigid due to palpation Auscultation: normal bowel sounds Back/Spine/Pelvis: Back: no CVA tenderness Skin: General skin exam: normal color Rashes: no rashes Wounds: no wounds Neuro: General: patient oriented x3, moves all extremities and CN's II-XI intact bilaterally Extrem: Other: left arm with ttp medial upper arm, no cellulitis Psych: Mental Status: mental status grossly normal Affect: normal affect Attitude: cooperative Course Reevaluation(s) Reevaluation #1: I Discussed with patient that her pain in her arm could be things other than the nexplanon. I explained I would order labs with cbc, cmp, ck to assess for infe
[2022-08-09 13:01] VITALS: BP 126/76; PULSE 78; RESP 16; TEMP 36.6; O2SAT 98
== END 2022-08-09 13:00 | disposition home or self-care (01) ==
PROVIDERS: Emergency Provider General Practice
DX: M79.622 Pain in left upper arm (principal); N92.6 Irregular menstruation, unspecified; F17.210 Nicotine dependence, cigarettes, uncomplicated
CPT/HCPCS: 81025; 99283

== ENCOUNTER 2023-05-12 02:03 | Emergency (ER) | payer OTHER, SELFPAY ==
--- NOTE | ~2023-05-12 | XR_ITS ---
Left ankle Technique: AP, oblique, and lateral views were obtained. Clinical History: Injury Findings: There is an acute, oblique fracture of the distal fibula, at and just proximal to the level of the ankle mortise. Fracture is mildly displaced. No other fracture identified. Possible mild wide chan of the medial aspect of the ankle mortise. Soft tissues are otherwise unremarkable. Impression: Acute, oblique, mildly displaced fracture the distal fibula, as detailed above. Suspected mild widening of the medial aspect of the ankle mortise. Reviewed, dictated and finalized at location M. ER TEACHER Impression: Acute, oblique, mildly displaced fracture the distal fibula, as detailed above. Suspected mild widening of the medial aspect of the ankle mortise.
--- NOTE | ~2023-05-12 | XR_ITS ---
Left ankle Technique: AP, oblique, and lateral views were obtained. Clinical History: Fracture, status post splinting Comparison 05/12/2023 2:17 AM Findings: Acute, oblique fracture of the distal fibula the level of the ankle mortise is essentially unchanged. There is more pronounced widening of the medial aspect of the ankle mortise. Lateral soft tissue noted. Impression: Stable acute, oblique fracture of the distal fibula, mildly displaced. More pronounced widening of the medial aspect of the ankle mortise as compared to prior exam. Reviewed, dictated and finalized at location M. Impression: Stable acute, oblique fracture of the distal fibula, mildly displaced. More pronounced widening of the medial aspect of the ankle mortise as compared to prior exam.
[2023-05-12 02:04] VITALS: BP 150/98; PULSE 97; RESP 20; TEMP 36.8; O2SAT 100
--- NOTE | 2023-05-12 02:29 | ED.GENADULT ---
HPI - General Adult General Chief complaint: Extremity Injury, Lower Stated complaint: LEFT ANKLE PAIN Time Seen by Provider: 05/12/23 02:05 History of Present Illness HPI narrative: 27-year-old female presenting with ankle pain. Patient was trying to get out of her car when she slipped. She fell significant pain in her ankle it has been unable to bear weight. No other injuries. Related Data Allergies Allergy/AdvReac Type Severity Reaction Status Date / Time No Known Allergies Allergy Verified 05/12/23 02:09 [facility] Past Medical History Medical History (Updated 05/12/23 @ 02:35 by Leroy Vizcarra MD) No significant past medical history Surgical History Surgical History No significant past surgical history Family History Family History Other No significant family history Social History Social History Smoking status: Current every day smoker Alcohol intake: current Alcohol use details: Occasionally Substance use: current Substance use type: marijuana Living arrangements: with family Occupation/Education: occupation Gender identity (if verbalized by the patient): Female Exam Narrative: APPEARANCE: No apparent distress. Head: atraumatic. EYES: EOMI, NOSE: Atraumatic NECK: Trachea midline RESPIRATORY: No increased rate of breathing CARDIOVASCULAR: RRR, ABDOMINAL: Non-distended MUSCULOSKELETAl: Swelling of the left ankle, tenderness along the fibula, neurovascularly intact. NEURO: Alert. Moving 4/4 extremities SKIN:: Warm, dry. Normal color PSYCHIATRIC: Normal affect Course Vital Signs Vital signs: Vital Signs Temperature 98.3 F 05/12/23 02:04 Pulse Rate 97 05/12/23 02:04 Respiratory Rate 20 05/12/23 02:04 Blood Pressure 150/98 H 05/12/23 02:04 Pulse Oximetry 100 05/12/23 02:04 Oxygen Delivery Room Air 05/12/23 02:04 Temperature 98.3 F 05/12/23 02:04 Pulse Rate 97 05/12/23 02:04 Respiratory Rate 20 05/12/23 02:04 Blood Pressure 150/98 H 05/12/23 02:04 Pulse Oximetry 100 05/12/23 02:04 Oxygen Delivery Room Air 05/12/23 02:04 Medical Decision Making MDM Narrative Medical decision making narrative: -Course: 27-year-old presenting with ankle pain. X-ray showed fibula fracture with widening of the ankle mortise. 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 official read occurs in the morning -Interventions: [place], Motrin -Shared decision making / Disposition: discharge -RX Motrin Tylenol Vital Signs Vital Signs: Vital Signs Temperature 98.3 F 05/12/23 02:04 Pulse Rate 97 05/12/23 02:04 Respiratory Rate 20 05/12/23 02:04 Blood Pressure 150/98 H 05/12/23 02:04 Pulse Oximetry 100 05/12/23 02:04 Oxygen Delivery Room Air 05/12/23 02:04 Temperature 98.3 F 05/12/23 02:04 Pulse Rate 97 05/12/23 02:04 Respiratory Rate 20 05/12/23 02:04 Blood Pressure 150/98 H 05/12/23 02:04 Pulse Oximetry 100 05/12/23 02:04 Oxygen Delivery Room Air 05/12/23 02:04 Discharge Plan Discharge Clinical Impression: Ankle fracture Patient Disposition: Home, Self-Care Condition: Stable Instructions: Antibiotic Form, Ankle Fracture (DC) Additional Instructions: Please follow-up with orthopedics. Please use Motrin and Tylenol for pain. Oxycodone for breakthrough pain. Use crutches to not put weight on her ankle. Follow up with Orthopedics. Prescriptions: New ibuprofen 800 mg tablet 800 mg PO TID PRN (Reason: pain) 7 Days Qty: 21 0RF acetaminophen 500 mg tablet 1,000 mg PO TID P
[2023-05-12] MEDS: HYDROcodone/acetaminophen (*CRX) 5-325 MG TABLET 2 TAB PO (02:35)
[2023-05-12] MEDS: IBUPROFEN 400 MG TABLET 800 MG PO (02:36)
[2023-05-12 02:41] VITALS: BP 150/96; PULSE 86; RESP 18; O2SAT 100
== END 2023-05-12 03:21 | disposition home or self-care (01) ==
PROVIDERS: Emergency Provider Emergency Medicine
DX: S82.432A Displaced oblique fracture of shaft of left fibula, initial encounter for closed fracture (principal); V48.4XXA Person boarding or alighting a car injured in noncollision transport accident, initial encounter
CPT/HCPCS: 29515; 73610; 99284; A9270

== ENCOUNTER 2023-05-18 01:56 | Day surgery (SDC) | payer OTHER, SELFPAY ==
[2023-05-14 08:38] VITALS: BMI 29.4
--- NOTE | 2023-05-14 08:43 | PC.NURSE ---
Report to the Outpatient Waiting Room, entrance under the green pavilion located off [facility], at time 1300 on date 05/18/23. Planned Procedure Time: 1500. Time changes happen often and if your time is changed the preop area will call you the afternoon before. - You and your visitor will be asked to self-screen and do not enter if you have any COVID symptoms. - A mask is optional within the hospital at this time. Patients may have clear liquids (water, carbonated beverages, clear teas, apple juice) until 3 hours prior to surgery with a maximum of 20 ounces. - No food from midnight until time of surgery Take the following medications with a SIP of water the morning of surgery: OXYCODONE DO NOT STOP ANY OF YOUR OTHER PRESCRIPTION MEDICATIONS PRIOR TO SURGERY ?EXCEPT THE FOLLOWING Medications to discontinue per physician: N/A Date to take last dose: N/A Please no make-up, nail central african, hairspray, perfume, deodorant, or body powder the day of surgery. No jewelry (including any body piercings) or valuables the day of surgery, leave them at home. Please take a shower or bath the night before, or the morning of, surgery with an antibacterial soap. Wear comfortable, loose fitting clothing. - Jewelry must be removed prior to entering the operating room. Rings and piercings that are not removed may be cut off. - The hospital will not accept responsibility for valuables. - Please leave all valuables, including medications, at home the day of surgery. If you are going home after surgery, a licensed race car driver must drive you home. - NO public transportation without another adult if you receive anesthesia. - We recommend that an adult stay with you for 24 hours following discharge. - We also recommend that you do not drive, make important decision, drink alcoholic beverages, or take any drugs that were not prescribed by your health care provider for at least 24 hours after your discharge time. Follow any additional instructions given to you from your surgeon. If you or anyone in your household have experienced Covid symptoms in the past week, please notify your surgeon or the nurse liaison at the phone number below for possible testing. Telephone instructions given to PT - JAYLAN FARMER and asked if any additional questions and then verbalized understanding. Patient advised to call surgeon office or pre surgery nurse liaison [phone] if any additional questions.
[2023-05-18] VITALS (8 sets, daily range): BP systolic 107–136; BP diastolic 50–96; PULSE 65–82; RESP 12–19; TEMP 36.9–37.6; O2SAT 93–100
--- NOTE | ~2023-05-18 | XR_ITS ---
EXAMINATION: XR surgery orthopedic DATE: 05/18/2023 14:40 INDICATION: ORIF left ankle fracture TECHNIQUE: 5 fluoroscopic images of the left ankle were obtained during procedure performed by Dr. Marlin pandey. Radiologist was not present for the imaging or procedure. The amount of fluoroscopy time us ed during this procedure was 0.8 minutes. COMPARISON: 05/12/2023 FINDINGS: Interval open reduction and internal fixation of the distal left fibular fracture and likely syndesmo tic injury. The prior displacement of the fibular fracture and lateral subluxation of the talar dome relative to the tibial plafond and. Reduced to essentially anatomic alignment. The ankle mortise appe ars congruent. The lateral malleolar fractures fixed with interfragmentary screw and lateral plate an d screws. There is also a lucent tunnel likely for a tightrope type syndesmotic fixation extending ac ross the metaphyseal regions of the distal tibia and fibula with small metallic button at the medial side of the tunnel. No new fractures identified. Profiled joint spaces are normal. IMPRESSION: 1. Near-anatomic alignment post open reduction and internal fixation of a lateral malleolar fracture with lateral patellar subluxation and likely associated tibiofibular syndesmotic injury. Reviewed, dictated and finalized at location A. ENT REGISTRATION CLERK IMPRESSION: 1. Near-anatomic alignment post open reduction and internal fixation of a later al malleolar fracture with lateral patellar subluxation and likely associated t ibiofibular syndesmotic injury.
--- NOTE | 2023-05-18 07:10 | WPDHPUPDATE1 ---
History and Physical Update Update Date/Time: 05/18/23 07:10 History and Physical has been reviewed, including an updated exam of the patient. There are NO changes in the patient's condition. Risks, benefits, and alternatives have been discussed and questions answered. Patient agrees to proceed with procedure.
[2023-05-18] MEDS: ACETAMINOPHEN 500 MG TABLET 1000 MG PO (12:40)
--- NOTE | 2023-05-18 12:43 | P.PNAN_ITS ---
Anes - Initial Pre Proc Eval Procedure: Operation Date: 05/18/23 15:00 Proposed Procedures p Open Reduction Internal Fixation Left Lateral Malleolus Fracure, Tibia Fibula Syndesmosis - Serafin Munson MD Date/Time: 05/18/23 12:43 Surgeon: Serafin Munson MD Pre Op Diagnosis: left distal fibula fx Patient Data Age: 27 Gender: F Height: 1.78 m Weight: 93 kg Allergies Allergy/AdvReac Type Severity Reaction Status Date / Time No Known Allergies Allergy Verified 05/14/23 08:38 Home Medications Medication Instructions Recorded Confirmed Type ibuprofen 800 mg tablet 800 mg PO TID PRN pain 7 days #21 05/12/23 05/14/23 Rx tabs aspirin 81 mg tablet,delayed 81 mg PO BID 14 days #28 tabs 05/18/23 Rx release oxycodone-acetaminophen 5 mg-325 1 - 2 tablet PO Q4-6H PRN pain #30 05/18/23 Rx mg tablet tabs Patient hx anesthesia problems: none Family hx anesthesia problems: none Results Review: All pre-operative results and documents have been reviewed as part of the pre- operative evaluation. [facility] Past Medical History Medical History Overweight Smoking Surgical History Surgical History No significant past surgical history Family History Family History Other No significant family history Social History Social History (Updated 05/18/23 @ 12:44 by Sam Brewster MD) Alcohol intake: current Alcohol use details: 2/MONTH Substance use: former Substance use type: marijuana Last use: 04/12/20 Do You Feel Safe in your Home?: Yes Lack of Transportation: No Lack of Food: Never True Current Housing: I Have Housing Concerned About Future Housing: No Difficulty Paying Gas/Electric Bills: YES Difficulty Paying for Meds: No Currently Unemployed: No Education: Trade/Vocational Certificate Difficulty w/ Childcare or Family Care: No Living arrangements: with family Additional living arrangements comments: CHILDREN AND FIANCE Occupation/Education: occupation Gender identity (if verbalized by the patient): Female Spiritual care concerns: No Anes - Eval Final PreProcedure Day of Procedure 02/06/24 12:43 Patient weight: overweight Heart: regular rate and rhythm Lungs: clear to auscultation Airway: Mallampati scale class II Neurological: alert and oriented Last oral intake: >/= 8 hours ASA classification: II Emergent: no Anesthetic plan: proceed Anesthesia type and monitoring: general LMA and standard monitoring Results Review: All pre-operative results and documents have been reviewed as part of the pre- operative evaluation. Informed Consent: The patient's anesthetic plan and its attendant risks and benefits were discussed with the patient/family/POA. Questions were solicited and answers provided to the satisfaction of the patient/family/POA.
[2023-05-18] MEDS: KETOROLAC 15 MG/ML VIAL (*BKC) IV PUSH (13:00)
[2023-05-18] MEDS: LACTATED RINGERS 1,000 ML 30 ML IV CONT ×2 (13:00→15:05)
[2023-05-18] MEDS: ceFAZolin 2 GM/D5W 50 ML 2 GM/50 ML BAG IVPB (13:25)
[2023-05-18] MEDS: BUPIVACAINE/EPINEPHRINE 0.5% 10 ML VIAL 30 ML INFILTRATE (13:56)
[2023-05-18] MEDS: fentaNYL CITRATE INJ (*CRX) 100 MCG/2 ML VIAL 25 MCG IV PUSH ×6 (15:21→16:00)
--- NOTE | 2023-05-18 16:11 | P.OP_ITS ---
Procedure Note - Detailed Date of Procedure 05/18/23 Pre-op Diagnosis 1. Left distal fibula fx 2. Tibia fibula syndesmosis sprain Post-op Diagnosis Same Procedure Performed 1. ORIF left ankle lateral malleolus fracture 2. ORIF distal tib-fib syndesmosis Surgeon Serafin Munson MD Anesthesia General Findings Excellent bone quality. [id number] dynamic widening of the tib-fib syndesmosis. Description of Procedure A general anesthetic was administered. The limb was prepped and draped in the usual sterile fashion with a well-padded tourniquet high on the thigh. A bump was placed under the hip. The limb was exsanguinated and the tourniquet infla zeeshan to 300 millimeters of mercury during the procedure. A longitudinal incision was created at the distal fibula. Careful dissection was carried down to bone. Perineal nerve branches were protected. The fracture was carefully exposed. Callus and debris was irrigated from the wound. The fracture was brought out to length. Reduction was accomplished with the reduction forceps. An anterior to posterior lag screw was placed, 2.7 mm. The fixation plate did not require contouring. Fixation was performed with a combination of cortical and cancellous screws. The distal screws were locking. After testing the syndesmosis and confirming the laxity, the 3.5 mm drill was brought through the plate and across the 4 cortices. The suture button was deployed and secured. The ankle remained in an anatomic position. Fluoroscopy was used throughout the procedure to confirm anatomic reduction and appropriate placement of the implants. The tourniquet was released. Meticulous hemostasis was obtained. Wound was closed in layers with 2-0 Vicryl suture 3-0 Monocryl suture and 3-0 and 2-0 nylon suture. A sterile dressing with well padded posterior and stir up splint was applied. The patient was extubated and brought to the recovery room in stable condition. There were no complications. 30 mL of absent marked with epinephrine was injected about the ankle. Implants Accu Med distal fibular anatomic lateral plate. Accu Med tib fib syndesmosis suture button construct. Estimated Blood Loss 20 Complications No immediate complications Condition Stable Disposition PACU [facility] Billing Surgery - Charge Forward: Surgery Billing
== END 2023-05-18 17:00 | disposition home or self-care (01) ==
PROVIDERS: Visit Provider Orthopaedic Surgery
PROC: (CPT 27792; principal; 2023-05-18 15:00)
DX: S82.62XA Displaced fracture of lateral malleolus of left fibula, initial encounter for closed fracture (principal); S93.432A Sprain of tibiofibular ligament of left ankle, initial encounter; X50.0XXA Overexertion from strenuous movement or load, initial encounter; F12.90 Cannabis use, unspecified, uncomplicated; Z79.82 Long term (current) use of aspirin; Z79.891 Long term (current) use of opiate analgesic
CPT/HCPCS: 27792; 27829; 99199; A9270; C1713; J0690; J1100; J1170; J1885; J2250; J2405; J2704; J3010; J7120

== ENCOUNTER 2023-06-30 08:05 | Outpatient (CLI) | payer OTHER, SELFPAY ==
--- NOTE | ~2023-06-30 | XR_ITS ---
Left ankle Technique: AP, oblique, and lateral views were obtained. Clinical History: Orthopedic follow-up COMPARISON: 05/12/2023 Findings: No acute fracture or dislocation is seen. Patient is status post ORIF of the distal fibula with syndesmotic hardware present as well. Osseous alignment appears anatomic. Soft tissues are other lopez unremarkable. Impression: No acute abnormality. Prior ORIF of the distal fibula and syndesmosis, with anatomic alignment [place] p[place]. Reviewed, dictated and finalized at [facility]. Impression: No acute abnormality. Prior ORIF of the distal fibula and syndesmosis, with roz tomic alignment currently.
== END 2023-06-30 08:06 | disposition home or self-care (01) ==
PROVIDERS: Visit Provider Orthopaedic Surgery
DX: Z47.89 Encounter for other orthopedic aftercare (principal)
CPT/HCPCS: 73610

== ENCOUNTER 2024-11-02 11:52 | Emergency (ER) | payer OTHER, SELFPAY ==
--- NOTE | 2024-11-02 12:00 | ED_ITS ---
HPI - Female Genitourinary General Chief complaint: Urogenital-Female Stated complaint: UTI Time Seen by Provider: 11/02/24 11:55 Source: patient Mode of arrival: ambulatory Limitations: no limitations History of Present Illness HPI Narrative: Patient is a 29-year-old female who presents with frequency with bladder pain for 1 day. Patient has history of UTI. Patient also had unprotected sex 3 days ago. Denies any discharge or odor but is requesting STI testing. Denies any fever, chills, nausea, vomiting, diarrhea, low back pain. Denies any history of kidney stones. MD elicited complaint: dysuria Related Data Home Medications ?Medication ?Instructions ?Recorded ?Confirmed ?Last Taken ?Type ibuprofen 600 mg tablet mg 11/02/24 Unknown History Allergies Allergy/AdvReac Type Severity Reaction Status Date / Time No Known Allergies Allergy Verified 11/02/24 12:12 Review of Systems Review of Systems: All systems reviewed & are unremarkable except as noted in HPI and below Constitutional: Constitutional: Denies chills, Denies fever(s), Denies headache(s), Denies malaise and Denies weakness Eyes: Eyes: Denies change in vision, Denies eye discharge and Denies irritation ENT: Denies otalgia, Denies headache(s), Denies nasal congestion, Denies nasal discharge, Denies sinus pain and Denies sore throat Cardiovascular: Cardiovascular: Denies chest pain, Denies edema, Denies palpitations and Denies dyspnea Respiratory: Respiratory: Denies cough and Denies dyspnea Gastrointestinal: Gastrointestinal: Denies abdominal pain, Denies diarrhea, Denies nausea and Denies vomiting Genitourinary: Genitourinary: Denies hematuria, Reports nocturia, Reports dy suria, Denies flank pain and Reports urinary urgency Musculoskeletal: Musculoskeletal: Denies back pain and Denies numbness Integumentary/Breasts: Skin/Breast: Denies pruritus and Denies rash Neurologic: Denies headache(s), Denies numbness and Denies weakness Psychiatric: Psychiatric: Reports no additional psychiatric complaints Endocrine: Endocrine: Denies palpitations PMFSH Past Medical History Medical History Overweight Smoking Surgical History Surgical History History of open reduction and internal fixation (ORIF) procedure (~05/18/23) Left distal fibula fx w/ syndesmosis No significant past surgical history Family History Family History Other No significant family history Social History Social History Smoking status: Never smoker Alcohol intake: current Alcohol use details: 2/MONTH Substance use: former Substance use type: marijuana Last use: 04/12/20 Do You Feel Safe in your Home?: Yes Lack of Transportation: No Lack of Food: Never True Current Housing: I Have Housing Concerned About Future Housing: No Difficulty Paying Gas/Electric Bills: YES Difficulty Paying for Meds: No Currently Unemployed: No Education: Trade/Vocational Certificate Difficulty w/ Childcare or Family Care: No Living arrangements: with family Additional living arrangements comments: CHILDREN AND FIANCE Occupation/Education: occupation Gender identity (if verbalized by the patient): Female Spiritual care concerns: No Comments At time of signature, agree with nursing past medical, surgical, social and fam kristie history. There is no relevant family history pertinent to the presenting complaint. Exam Const: General: cooperative, healthy appearing, comfortable, no acute distress and well nourished Nutritional Appearance: well nourished Orientation/consciousness: patient oriented x3 HENMT: Head: normocephalic and atraumatic Ears: external ears normal Face/Nose/Sinus: Normal external nose present, Normal nares present and normal facial exam Face and sinus: normal facial exam Eyes: General: appearance normal, both eyes and all related structures Pupils: Equal, round and reactive pupils present EOM: EOMs intact bilaterally Neck: Neck: normal visual inspection, full ROM and supple Chest: Chest palpation & inspection: normal inspection of the chest Resp: Effort & Inspection: normal respiratory effort and able to speak in complete sentences Cardio: Rate: regular rate Rhythm: regular rhythm GI: Inspection: normal to inspection GI Palp: No abdominal tenderness and Yes Soft to palpation : General: Yes no CVA tenderness Back/Spine/Pelvis: Back: no CVA tenderness Skin: General skin exam: normal color and no rashes or lesions noted Neuro: General: patient oriented x3 and moves all extremities Cranial nerves: Yes Equal, round and reactive pupils present Extrem: General: normal to inspection and full ROM Psych: Appearance: grossly normal and well kempt Course Course Emergency Course: Patient is aware of diagnosis, understands and agrees to treatment plan. Anticipatory guidance given. Patient agrees to follow-up as directed and is aware of reasons to seek care at the emergency department. Portions of this record may have been created with voice recognition software Level of Care: Express Care Visit Vital Signs Vital signs: Vital Signs Temperature 36.6 C 11/02/24 12:05 Pulse Rate 61 11/02/24 12:05 Respiratory Rate 18 11/02/24 12:05 Blood Pressure 147/100 H 11/02/24 12:05 Pulse Oximetry 100 11/02/24 12:05 Oxygen Delivery Room Air 11/02/24 12:05 Temperature 36.6 C 11/02/24 12:05 Pulse Rate 61 11/02/24 12:05 Respiratory Rate 18 11/02/24 12:05 Blood Pressure 160/110 H 11/02/24 12:39 Pulse Oximetry 100 11/02/24 12:05 Oxygen Delivery Room Air 11/02/24 12:05 Reviewed MDM - Female Genitourinary MDM Narrative Medical decision making narrative: Exam findings and UA show probable UTI, will treat with antibiotics. Will send off urine for STI testing; patient is non-toxic appearing and is in no distress. No CMT, adnexal tenderness, or evidence of pelvic etiology. Patient is appropriate for outpatient treatment and follow-up. Differential Diagnosis Differential diagnosis: Likely urinary tract infection, bacterial vaginosis, trichomoniasis, cervicitis, vaginitis and cystitis Medical Records Attestation: I reviewed the patient's medical records. Lab Data Attestation: I reviewed the patient's lab results. Labs: Lab Results 11/02/24 Range/Units 12:10 POC Urine Color Dark POC Urine Clarity Clear POC Urine pH 7.0 POC Ur Specif [place] 1.025 POC Urine Protein Negative (Negative) POC Ur Glucose (UA) Negative (Negative) POC Urine Ketones Negative (Negative) POC Urine Blood Negative (Negative) POC Urine Nitrite Positive (Negative) POC Urine Bilirubin Negative (Negative) POC Urine Urobilinogen 0.2 POC U Leukocyte Esteras Negative (Negative) Discharge Plan Discharge Clinical Impression: Possible exposure to STI Urinary tract infection Qualifiers: Urinary tract infection type: acute cystitis Hematuria presence: without hematuria Qualified Code(s): N30.00 - Acute cystitis without hematuria Patient Disposition: Home Condition: Stable Instructions: Urinary Tract Infection in Women (ED) Additional Instructions: We will send a urine culture to the lab, based on your symptoms and urine dip we will start treatment today. If culture comes back and bacteria is not susceptible to antibiotic, your prescription may change. Your symptoms should improve within a day of starting antibiotics, but you should finish all the antibiotic pills you get. Otherwise your infection might come back Continue with increased water intake. Take Tylenol or ibuprofen as needed for pain or fever. Follow-up with primary care provider for urine recheck or see ER visit if condition worsens with high fever, nausea, vomiting, severe back pain Your blood pressure was elevated above 120/80 today at Urgent Care. This puts you above the threshold for follow up visit with a primary care provider. High blood pressure does not usually cause any symptoms, however it may lead to kidney failure, stroke, heart disease just to name a few if untreated . Many people are anxious when seeing a provider or nurse. As a result, you are not diagnosed with hypertension at this time unless your blood pressure is persistently high at two office visits at least one week apart. Some things that can help lower blood pressure are lifestyle modifications, such as light exercise, decreased salt in diet, and weight loss. It is important to follow up with a PCP about this within 1 week. Patient Language: Swedish Prescriptions: New nitrofurantoin monohyd/m-cryst 100 mg capsule 100 mg PO Q12H 5 Days Qty: 10 0RF Rx Instructions: must administer with a meal/food No Action ibuprofen 600 mg tablet Follow-up/Referrals: Enrico,Tamia Coronel MD [Primary Care Provider] - 3 Days Time of Disposition: 12:32
[2024-11-02 12:05] VITALS: BP 147/100; PULSE 61; RESP 18; TEMP 36.6; O2SAT 100
[2024-11-02 12:12] LABS: EDUAAPPEAR Clear; EDUABILI Negative (Negative); EDUABLOOD Negative (Negative); EDUACOLOR1 Dark; EDUAGLUCOSE Negative (Negative); EDUAKETONE Negative (Negative); EDUALEUKO Negative (Negative); EDUANITRATE Positive (Negative); EDUAPH 7.0; EDUAPROTEIN Negative (Negative); EDUASPGRAVITY 1.025; EDUAUROBILI 0.2
[2024-11-02 12:39] VITALS: BP 160/110
[2024-11-02 19:56] LABS: Trichomonas Vag PCR NOT DETECTED (NOT DETECTE)
== END 2024-11-02 12:41 | disposition home or self-care (01) ==
PROVIDERS: Emergency Provider Nurse Practitioner Family; PCP Internal Medicine
DX: N30.00 Acute cystitis without hematuria (principal); Z11.3 Encounter for screening for infections with a predominantly sexual mode of transmission
CPT/HCPCS: 81003; 87086; 87491; 87591; 87661; 99213; G0463